=== PATIENT | male | born 1995 | race Caucasian/White ===

== ENCOUNTER 2017-09-25 19:11 | Emergency (ER) | END 2017-09-26 02:30 | disposition home or self-care (01) ==

== ENCOUNTER 2018-11-20 19:20 | Emergency (ER) | payer MEDICAID ==
[~2018-11-20] VITALS: Wt 90.6 kg
[~2018-11-20 19:20] MED LIST: HYDR-3980 PO; NAPR-985 PO
[2018-11-20 19:26] VITALS: BP 134/69; PULSE 76; RESP 18
--- NOTE | 2018-11-20 20:33 | ERD ---
ER Documentation Chief Complaint Chief Complaint right side abd pain for the past month no dysuria. no N/V, intermitent pain HPI 23-year-old male no past medical surgical history presents with 1 month complaint of right-sided abdominal pain. Patient localizes pain to right upper quadrant. Describes pain as intermittent occurring about 3-4 times per day. Symptoms not worse or improved with p.o. intake. He has been moving his bowels regularly without issue. Has not attempted to self medicate for his pain. Denies history of constipation. Denies associated fevers, chills,nausea, vomiting, diarrhea, radiation of pain, urinary symptoms. Has not sought medical care for this problem despite having the symptoms for over a month. Time evaluation patient is nontoxic-appearing with an unremarkable abdominal exam. ROS All systems reviewed and are negative except as per history of present illness. Medications Home Meds Active Scripts Ibuprofen* (Motrin*) 800 Mg Tab, 800 MG PO Q6, #30 TAB Prov:GENE DYSON PA-C 11/20/18 Hydrocodone/Acetaminophen ([place] 10-325 Tablet) 1 Each Tablet, 1 TAB PO Q6H PRN for PAIN, #7 TAB Prov:RICHARD SIMPSON PA-C 09/26/17 Naproxen* (Naprosyn*) 500 Mg Tablet, 500 MG PO BID PRN for PAIN AND/OR INFLAMMA TION, #30 TAB Prov:RICHARD SIMPSON PA-C 09/26/17 Allergies Allergies: Coded Allergies: No Known Allergy (Unverified , 09/25/17) PMhx/Soc Medical and Surgical Hx: pt denies Medical Hx, pt denies Surgical Hx History of Surgery: No Anesthesia Reaction: No Hx Neurological Disorder: No Hx Respiratory Disorders: No Hx Cardiac Disorders: No Hx Psychiatric Problems: No Hx Miscellaneous Medical Probl: No Hx Alcohol Use: No Hx Substance Use: No Hx Tobacco Use: No Smoking Status: Never smoker FmHx Family History: No diabetes, No coronary disease, No other Physical Exam Vitals Vital Signs Date Temp Pulse Resp B/P (MAP) Pulse Ox O2 O2 Flow FiO2 Time Delivery Rate 11/20/18 98.2 76 18 134/69 99 19:26 (90) Physical Exam I have reviewed the triage vital signs. Const: Well nourished, well developed, appears stated age Eyes: PERRL, no conjunctival injection HENT: NCAT, Neck supple without meningismus CV: RRR, Warm, well-perfused extremities RESP: CTAB, Unlabored respiratory effort GI: soft, non-tender, non-distended, no masses MSK: No gross deformities appreciated Skin: Warm, dry. No rashes Neuro: grossly non focal Psych: Appropriate mood and affect. Results 24 hrs Laboratory Tests Test 11/20/18 20:51 Urine Color YELLOW Urine Clarity CLOUDY Urine pH 7.0 Urine Specific [place] 1.024 Urine Ketones NEGATIVE mg/dL Urine Nitrite NEGATIVE mg/dL Urine Bilirubin NEGATIVE mg/dL Urine Urobilinogen NEGATIVE mg/dL Urine Leukocyte Esterase NEGATIVE Yamilex/ul Urine Microscopic RBC 1 /HPF Urine Microscopic WBC 15 /HPF Urine Hemoglobin NEGATIVE mg/dL Urine Glucose NEGATIVE mg/dL Urine Total Protein NEGATIVE mg/dl Procedures/MDM 23 yo male presenting with abdominal pain over one month. This patient presents with abdominal pain of unclear etiology. Their evaluation has not identified a emergent etiology for the abdominal pain. Specifically, given the length of symptomatology, the very benign exam I have a very low suspicion for appendicitis, ischemic bowel, bowel perforation, or any other life threatening disease. Plan: Abdominal U/S without acute findings, appendix not visualized No pain Rx as patient not currently in pain PMD follow, strict return precautions I have discussed with the patient the level of uncertainty with undifferentiated abdominal pain and clearly explained the need to follow-up as noted on the discharge instructions, or return to the Emergency Department immediately if the pain worsens, develops fever, persistent and uncontrollable vomiting, or for any new symptoms or concerns. I discussed with the patient that this presentation today for abdominal pain could represent a significant risk for an acute abdominal process. Although the tests in the ED were essentially normal, there is still a possibility of a process such as appendicitis, diverticulitis, cholecystitis, ulcer, early bowel obstruction, mesenteric ischemia, kidney stone, or even kidney infection which could subsequently cause disability or . DISPOSITION PLAN: We discussed follow up with the patient's primary care doctor within 24 to 48 hours. Patient counseled regarding my diagnostic impression and care plan. Prior to discharge all questions answered. Pt agrees with treatment plan and understands strict return precautions. Precautionary instructions provided including instructions to return to the ER if not improving or for any worsening or changing symptoms or concerns. Departure Diagnosis: Primary Impression: Abdominal pain Condition: Stable GENE DYSON PA-C Nov 20, 2018 20:33
[2018-11-20] MEDS ORDERED: IBUP800T48 PO (21:50)
== END 2018-11-20 22:06 | disposition home or self-care (01) ==
LOC: FTE 19:20
DX: R10.9 Unspecified abdominal pain (principal)
CPT/HCPCS: 76705; 81001; Z7502